=== PATIENT | male | born 1960 | race Caucasian/White ===

== ENCOUNTER → 2017-11-23 11:03 | Outpatient (CLI) | payer BC, SELFPAY ==
--- NOTE | 2017-11-23 11:10 | XR_ITS ---
XR chest 2V HISTORY: ITS.REASON: MILD PERSISTENT ASTHMA ORDERING PHYSICIAN: Jonathan Bravo MD PATIENT AGE: 57 years COMPARISON: None available FINDINGS: The cardiomediastinal silhouette and pulmonary vascularity are within normal limits. The lungs are clear without infiltrates, suspicious nodules, or pleural effusions. Calcified granulomas noted over the anterior heart on the lateral view probably in the right middle lobe No acute bony abnormalities. IMPRESSION: No acute finding
== END ==
PROVIDERS: PCP Internal Medicine Adolescent Medicine; Visit Provider Internal Medicine Adolescent Medicine
DX: J45.31 Mild persistent asthma with (acute) exacerbation (principal); R05 Cough
CPT/HCPCS: 71046

== ENCOUNTER → 2018-09-28 09:01 | Outpatient (CLI) | payer BC, SELFPAY ==
[2018-09-28 10:01] LABS: Basophils % 0.5 % (0.1-2.0); Eosinophils # 0.3 K/mm3 (0.0-0.4); Eosinophils % 5.2 % (0.1-12.0); Hematocrit 44.5 % (42.0-52.0); Hemoglobin 14.5 g/dL (14.1-18.0); Lymphocytes # 2.3 K/mm3 (0.7-4.5); Lymphocytes % 37.3 % (10-50); Mean Corpuscular HGB Conc 32.6 g/dL (31.8-35.4); Mean Corpuscular Hemoglobin 29.8 pg (27.0-31.2); Mean Corpuscular Volume 91.3 fl (80-94); Mean Platelet Volume 7.2 fl (7.4-10.4); Monocytes # 0.4 K/mm3 (0.1-1.0); Monocytes % 6.1 % (1.7-9.3); Neutrophils # 3.1 K/mm3 (1.8-7.8); Platelet Count 259 K/mm3 (142-424); Red Blood Count 4.87 M/mm3 (4.60-6.20); Red Cell Distribution Width 14.3 % (11.5-17.5); White Blood Count 6.1 K/mm3 (4.8-10.8)
[2018-09-28 12:38] LABS: Alanine Aminotransferase 44 U/L (12-78); Albumin Level 3.8 gm/dL (3.4-5.0); Albumin/Globulin Ratio 1.2 (1.1-1.8); Alkaline Phosphatase 58 U/L (46-116); Anion Gap 13.8 mEq/L (5-15); Aspartate Amino Transferase 23 U/L (15-37); Bilirubin,Total 1.1 mg/dL (0.2-1.0); Blood Urea Nitrogen 22 mg/dL (7-18); Calcium 9.2 mg/dL (8.5-10.1); Carbon Dioxide 28 mmol/L (21.0-32.0); Chloride 104 mmol/L (98-107); Cholesterol 163 mg/dL (140-200); Creatinine,Serum 0.89 mg/dL (0.70-1.30); Estimated Glomerular Filt Rate 88 ml/min (>60); GFR (African American) 107 ML/MIN (>60); Globulin 3.1 gm/dl (1.3-3.2); Glucose 104 mg/dL (74-106); HDL Cholesterol 55 mg/dL (27-67); LDL Cholesterol 92 mg/dL (0-130); Potassium 4.8 mmoL/L (3.5-5.1); Sodium 141 mmol/L (136-145); Total Protein,Serum 6.9 gm/dL (6.4-8.2); Triglycerides 78 mg/dL (30-200); VLDL Cholesterol 16 mg/dL (0-40)
== END ==
PROVIDERS: PCP Internal Medicine Adolescent Medicine; Visit Provider Internal Medicine Adolescent Medicine
DX: E78.5 Hyperlipidemia, unspecified (principal); J45.31 Mild persistent asthma with (acute) exacerbation
CPT/HCPCS: 36415; 80053; 80061; 85025

== ENCOUNTER → 2020-03-18 08:03 | Outpatient (CLI) | payer BC, SELFPAY ==
[2020-03-18 08:19] LABS: Basophils % 0.7 % (0.1-2.0); Eosinophils # 0.3 K/mm3 (0.0-0.4); Eosinophils % 6.3 % (0.1-12.0); Hematocrit 42.3 % (42.0-52.0); Hemoglobin 14.5 g/dL (14.1-18.0); Lymphocytes # 1.8 K/mm3 (0.7-4.5); Lymphocytes % 35.1 % (10-50); Mean Corpuscular HGB Conc 34.2 g/dL (31.8-35.4); Mean Corpuscular Volume 90.6 fl (80-94); Mean Platelet Volume 8.4 fl (7.4-10.4); Monocytes # 0.3 K/mm3 (0.1-1.0); Monocytes % 5.5 % (1.7-9.3); Neutrophils # 2.6 K/mm3 (1.8-7.8); Neutrophils % 52.4 % (37.0-80.0); Platelet Count 209 K/mm3 (142-424); Red Blood Count 4.67 M/mm3 (4.60-6.20); Red Cell Distribution Width 14.5 % (11.5-17.5)
[2020-03-18 09:42] LABS: Alanine Aminotransferase 40 U/L (12-78); Albumin Level 4.2 g/dl (3.5-5.0); Albumin/Globulin Ratio 1.8 (1.1-1.8); Alkaline Phosphatase 68 U/L (38-126); Anion Gap 10.7 mEq/L (5-15); Aspartate Amino Transferase 51 U/L (17-59); Bilirubin,Total 1.1 mg/dl (0.2-1.3); Blood Urea Nitrogen 19 mg/dl (9-20); Calcium 9.7 mg/dl (8.4-10.2); Carbon Dioxide 27 mmol/L (22.0-30.0); Chloride 102 mmol/L (98-107); Chol/HDL Ratio 2.4 (1-3.5); Cholesterol 156 mg/dl (140-200); Estimated Glomerular Filt Rate 99 ml/min (>60); GFR (African American) 120 ML/MIN (>60); Globulin 2.4 g/dL (1.3-3.2); Glucose 118 mg/dl (74-100); HDL Cholesterol 66 mg/dl (40-60); Potassium 4.7 mmoL/L (3.5-5.1); Sodium 135 mmol/L (136-145); Total Protein,Serum 6.6 g/dl (6.3-8.2); Triglycerides 93 mg/dl (30-150); VLDL Cholesterol 19 mg/dL (0-40)
[2020-03-18 09:52] LABS: Direct LDL Cholesterol 82.29 mg/dL (100-129)
[2020-03-18 13:47] LABS: Hemoglobin A1C 5.7 % (4.0-6.0)
== END ==
PROVIDERS: Visit Provider Nurse Practitioner Family
DX: Z00.00 Encounter for general adult medical examination without abnormal findings (principal); E78.5 Hyperlipidemia, unspecified; R73.9 Hyperglycemia, unspecified; E66.01 Morbid (severe) obesity due to excess calories; Z68.41 Body mass index [BMI] 40.0-44.9, adult
CPT/HCPCS: 36415; 80053; 80061; 83036; 85025

== ENCOUNTER → 2020-04-10 11:54 | Outpatient (CLI) | payer BC, SELFPAY ==
[2020-04-10 14:24] LABS: Coronavirus 19 IgG Antibody Negative (Negative); Coronavirus 19 IgM Antibody Negative (Negative)
== END ==
PROVIDERS: Visit Provider Internal Medicine Gastroenterology
DX: Z01.818 Encounter for other preprocedural examination (principal); Z12.11 Encounter for screening for malignant neoplasm of colon
CPT/HCPCS: 36415; 86328

== ENCOUNTER 2020-04-13 11:13 | Day surgery (SDC) | payer BC, SELFPAY ==
[2020-04-08 13:56] VITALS: BMI 42.8
[2020-04-13 12:32] VITALS: BP 138/73; PULSE 69; RESP 18; TEMP 36.6; O2SAT 99
[2020-04-13 13:21] VITALS: O2SAT 95
--- NOTE | 2020-04-13 13:47 | HMH.PROC ---
[facility] Procedure Note Procedure Note:: Colonoscopy Procedure Report: Colonoscopy Endoscopist: Jordan Jensen II, MD Referring physician: MINERVA Woodall Date of Procedure: April 13, 2020 Equipment: Olympus 180 variable stiffness pediatric colonoscope Sedation: MAC sedation Indication: Mr. Santana is a 60-year-old gentleman who is here for follow-up screening/surveillance colonoscopy. He did have a colonoscopy 5 years ago at which time a single polyp was removed. He reports no abdominal pain, weight loss, change in his bowel habits or rectal bleeding. He reports no family history of colon cancer. His mother had breast cancer and his father had lung cancer. Procedure: Prior to the procedure, a history and physical exam was performed, and patient's medications and allergies were reviewed. The risks, benefits and alternatives of the sedation and procedure were discussed with the patient. All questions were answered and informed consent was obtained. The patient was brought to the procedure room. Patient identification and proposed procedure were verified by the physician and the nurse. The patient was placed in a left lateral decubitus position and the scope was passed under direct vision. Throughout the procedure, the patient's blood pressure, pulse, and oxygen saturations were monitored continuously. The colonoscopy was accomplished without difficulty. The patient tolerated the procedure well. Findings: On digital rectal examination there was normal rectal tone. There were no external hemorrhoids. The prostate was 2+, moderately firm especially in right central with some prostate asymmetry but no nodules. The colonoscope was introduced through the anal canal to the rectum and advanced to the cecum. The ileocecal valve and appendiceal orifice were identified. The scope was advanced a short distance into the ileum which appeared grossly normal. The scope was then withdrawn into the colon. The cecum, ascending and transverse colon were grossly normal. There were a few scattered diverticuli in the distal descending and sigmoid colon. There were no mucosal abnormalities identified. Upon retroflexion within the rectum there were grade 1 internal hemorrhoids.The preparation was excellent throughout with Woodland Preparation Score of 9. The cecal time was 10 minutes. Impression: 1. Left-sided diverticulosis 2. Grade 1 internal hemorrhoids 3. Firm asymmetric prostate Plan: I am going to check PSA if this has not been done recently because of his irregular prostate. The patient will not require screening/surveillance colonoscopy again for 10 years by ACS guidelines. I would encourage bulk fiber supplementation on a long-term daily maintenance basis.
[2020-04-13 13:52] VITALS: BP 84/48; PULSE 67; RESP 16; TEMP 36.2; O2SAT 92
[2020-04-13 14:02] VITALS: BP 126/89; PULSE 73; RESP 16; O2SAT 99
[2020-04-13 14:12] VITALS: BP 136/89; PULSE 59; RESP 16; O2SAT 99
[2020-04-13 14:22] VITALS: BP 144/77; PULSE 59; RESP 16; TEMP 36.2; O2SAT 99
[2020-04-13 15:42] LABS: Prostate Specific Ag, Diagnost 2.99 ng/ml (0.0-4.0)
== END 2020-04-13 14:24 | disposition home or self-care (01) ==
LOC: OUTP 11:15
PROVIDERS: PCP Internal Medicine Adolescent Medicine; Visit Provider Internal Medicine Gastroenterology
PROC: 0DJD8ZZ Inspection of Lower Intestinal Tract, Via Natural or Artificial Opening Endoscopic (ICD-10-PCS; CPT 45378; principal; 2020-04-13 12:30)
DX: Z12.11 Encounter for screening for malignant neoplasm of colon (principal); K57.30 Diverticulosis of large intestine without perforation or abscess without bleeding; K64.0 First degree hemorrhoids; Z86.010 Personal history of colon polyps; Z80.3 Family history of malignant neoplasm of breast; Z80.1 Family history of malignant neoplasm of trachea, bronchus and lung; I10 Essential (primary) hypertension; E78.5 Hyperlipidemia, unspecified; J45.909 Unspecified asthma, uncomplicated; Z79.82 Long term (current) use of aspirin; Z79.899 Other long term (current) drug therapy; Z79.51 Long term (current) use of inhaled steroids
CPT/HCPCS: 45378; 36415; 84153

== ENCOUNTER 2021-03-16 14:50 | Outpatient (RCR) | payer BC, SELFPAY ==
--- NOTE | 2021-03-16 16:03 | HMH.PTOPEV ---
PT Outpatient Evaluation Rehab PT Outpatient Evaluation Start: 03/16/21 15:48 Freq: Status: Active Protocol: Document 03/16/21 15:48 WILLOW (Rec: 03/16/21 16:02 JUDYGARFIELD [id number]) Electronically Signed By Reggie Martinez, PT 03/16/21 15:48 Outpatient Therapy Subjective History Subjective History Patient is a 61 year old male presenting to outpatient PT with reports of chronic knee pain L>R starting appoximately 5 years ago. Patient has been receiving injection in both knees every 3 months for approximatley 2 years. Patient understands that he will need to have B TKA surgery. He visits his orthopedist next week. Comorbidities include hx of HTN, HL, elevated BMI and L knee arthroscopy. Chief Complaint Pain,Stiff,Clicks,Swelling Symptom Type Sharp,Shooting Symptoms Relieved By Rest/Positioning,Ice,OTC Meds, Prescription Meds Prior Functional Limitations Standing,Walking Current Functional Limitations Housework,Standing,Squatting, Recreation Activity,Walking, Stairs,Balance Symptom Description Intermittent Level of pain today (0-10) 0 Pain scale - at its best (0-10) 0 Pain scale - at its worst (0-10) 9 Hip/Knee Eval Gait Observation General Gait Pattern Observation Antalgic Gait Assistive Device Assistive Devices Straight Cane,Rolling / Wheeled Walker Palpation Tenderness bilateral Knee Palpation Finding Tenderness Knee Palpation Overall Comment B patellar tendon and medial tibial plateau 3/4 MMT left Hip Flexion Strength Grade 4 Good Hip Abduction Strength Grade 4- Good- Hip Adduction Strength Grade 4- Good- Hip Extension Strength Grade 4- Good- Hip External Rotation Strength Grade 4- Good- Hip Internal Rotation Strength Grade 4- Good- Knee Extension Strength Grade 4- Good- Knee Flexion Strength Grade 4 Good right Hip Flexion Strength Grade 4- Good- Hip Abduction Strength Grade 4- Good- Hip Adduction Strength Grade 4 Good Hip Extension Strength Grade 4- Good- Hip External Rotation Strength Grade 4- Good- Hip Internal Rotation Strength Grade 4- Good- Knee Extension Strength Grade 4 Good Knee Flexion Strength Grade 5 Normal ROM Hip ROM Reason Not Measure
== END 2021-03-16 14:55 | disposition home or self-care (01) ==
LOC: PT 14:50
PROVIDERS: PCP Internal Medicine Adolescent Medicine; Visit Provider Nurse Practitioner Family
DX: M17.0 Bilateral primary osteoarthritis of knee (principal)
CPT/HCPCS: 97010; 97014; 97163; G0283

== ENCOUNTER → 2021-03-19 10:02 | Outpatient (CLI) | payer BC, SELFPAY ==
[2021-03-19 10:45] LABS: Basophils # 0.1 K/mm3 (0-0.2); Basophils % 0.7 % (0.1-2.0); Eosinophils # 0.5 K/mm3 (0.0-0.4); Eosinophils % 6.3 % (0.1-12.0); Hematocrit 43.8 % (42.0-52.0); Hemoglobin 14.8 g/dL (14.1-18.0); Lymphocytes # 2.4 K/mm3 (0.7-4.5); Lymphocytes % 33.8 % (10-50); Mean Corpuscular HGB Conc 33.8 g/dL (31.8-35.4); Mean Corpuscular Hemoglobin 29.9 pg (27.0-31.2); Mean Corpuscular Volume 88.4 fl (80-94); Mean Platelet Volume 7.4 fl (7.4-10.4); Monocytes # 0.5 K/mm3 (0.1-1.0); Monocytes % 6.7 % (1.7-9.3); Neutrophils # 3.8 K/mm3 (1.8-7.8); Neutrophils % 52.5 % (37.0-80.0); Platelet Count 269 K/mm3 (142-424); Red Blood Count 4.95 M/mm3 (4.60-6.20); Red Cell Distribution Width 14.4 % (11.5-17.5); White Blood Count 7.2 K/mm3 (4.8-10.8)
[2021-03-19 11:05] LABS: Chloride 107 mmol/L (98-107); Potassium 4.9 mmoL/L (3.5-5.1); Sodium 143 mmol/L (136-145)
[2021-03-19 11:07] LABS: Blood Urea Nitrogen 13 mg/dl (9-20); Estimated Glomerular Filt Rate 86 ml/min (>60); GFR (African American) 104 ML/MIN (>60)
[2021-03-19 11:08] LABS: Alanine Aminotransferase 41 U/L (12-78); Albumin Level 4.5 g/dl (3.5-5.0); Albumin/Globulin Ratio 1.8 (1.1-1.8); Alkaline Phosphatase 76 U/L (38-126); Anion Gap 13.9 mEq/L (5-15); Aspartate Amino Transferase 33 U/L (17-59); Bilirubin,Total 1.2 mg/dl (0.2-1.3); Calcium 9.5 mg/dl (8.4-10.2); Carbon Dioxide 27 mmol/L (22.0-30.0); Chol/HDL Ratio 3.3 (1-3.5); Cholesterol 154 mg/dl (140-200); Globulin 2.5 g/dL (1.3-3.2); Glucose 102 mg/dl (74-100); HDL Cholesterol 46 mg/dl (40-60); Triglycerides 117 mg/dl (30-150); VLDL Cholesterol 23 mg/dL (0-40)
[2021-03-19 11:55] LABS: Prostate Specific Ag Screen 2.5 ng/ml (0.0-4.0)
[2021-03-19 12:02] LABS: Direct LDL Cholesterol 82.47 mg/dL (100-129)
[2021-03-19 13:34] LABS: Hemoglobin A1C 5.7 % (4.0-6.0)
== END ==
PROVIDERS: Visit Provider Nurse Practitioner Family
DX: E78.5 Hyperlipidemia, unspecified (principal); I10 Essential (primary) hypertension; R73.01 Impaired fasting glucose; G47.33 Obstructive sleep apnea (adult) (pediatric); Z12.5 Encounter for screening for malignant neoplasm of prostate
CPT/HCPCS: 36415; 80053; 80061; 83036; 85025; G0103

== ENCOUNTER → 2021-10-12 08:37 | Outpatient (POV) | payer BC, SELFPAY | PROVIDERS: Visit Provider Dermatology | DX: Z00.00 Encounter for general adult medical examination without abnormal findings (principal) ==

== ENCOUNTER → 2021-11-02 08:30 | Outpatient (POV) | payer BC, SELFPAY | PROVIDERS: Visit Provider Dermatology | DX: Z00.00 Encounter for general adult medical examination without abnormal findings (principal) ==

== ENCOUNTER → 2022-08-23 08:37 | Outpatient (POV) | payer BC, SELFPAY | PROVIDERS: Visit Provider Dermatology | DX: Z00.00 Encounter for general adult medical examination without abnormal findings (principal) ==

== ENCOUNTER → 2023-08-06 11:42 | Outpatient (CLI) | payer BC, SELFPAY | LOC: LAB.DROPOF 11:44 | PROVIDERS: PCP Internal Medicine Adolescent Medicine; Visit Provider Nurse Practitioner Family | DX: B96.89 Other specified bacterial agents as the cause of diseases classified elsewhere (principal); R06.02 Shortness of breath; R05.9 Cough, unspecified | CPT/HCPCS: 87070; 87205 ==

== ENCOUNTER → 2023-08-07 16:22 | Outpatient (CLI) | payer BC, SELFPAY ==
--- NOTE | 2023-08-07 16:29 | XR_ITS ---
PROCEDURE INFORMATION: Exam: XR Chest Exam date and time: 08/07/2023 4:30 PM Age: 63 years old Clinical indication: Cough and shortness of breath TECHNIQUE: Imaging protocol: Radiologic exam of the chest. Views: 2 views. COMPARISON: CR CXR2V XR chest 2V 11/23/2017 11:11 AM FINDINGS: Lungs: No evidence of acute pulmonary disease or infiltrates; lung salcido appear clear. Pleural spaces: No evidence of pleural effusion, pneumothorax, or pleural thickening in the visualized pleural spaces. Heart/Mediastinum: No evidence of mediastinal widening or cardiac silhouette enlargement; the mediastinum and heart appear within normal limits for contour and size. Vasculature: There are calcifications of the aortic arch. Bones/joints: There are degenerative changes of the thoracic spine. Other findings: The examination is limited by under penetration. IMPRESSION: No dense parenchymal consolidation, pleural effusion, or pneumothorax.
== END ==
PROVIDERS: PCP Nurse Practitioner Family; Visit Provider Nurse Practitioner Family
DX: R05.3 Chronic cough (principal); R06.02 Shortness of breath
CPT/HCPCS: 71046

== ENCOUNTER 2023-10-10 08:53 | Outpatient (POV) | payer BC, SELFPAY | END 2023-10-10 23:59 | disposition home or self-care (01) | LOC: SC 08:54 | PROVIDERS: PCP Nurse Practitioner Family; Visit Provider Dermatology | DX: Z00.00 Encounter for general adult medical examination without abnormal findings (principal) ==

== ENCOUNTER 2024-05-02 11:04 | Outpatient (CLI) | payer BC, SELFPAY | END 2024-05-02 23:59 | disposition home or self-care (01) | LOC: RT 11:05 | PROVIDERS: PCP Internal Medicine Adolescent Medicine; Visit Provider Nurse Practitioner Family | DX: I48.91 Unspecified atrial fibrillation (principal) | CPT/HCPCS: 93225; 93226 ==

== ENCOUNTER 2024-05-09 14:41 | Outpatient (CLI) | payer BC, SELFPAY ==
--- NOTE | 2024-05-09 14:58 | CA_ITS ---
APPROVED REPORT EXAM: Comprehensive 2D, Doppler, and color-flow Echocardiogram Sales Promoter: NATALIA Garvey, RVS Ht: 5 ft 11 in Wt: 343lbs BSA: 2.65 BP: 154/100 mmHg Indications: New A-fib, SOB, IRVING, HTN, Edema, HLD, SOA Echo Enhancing Agent Comments: Patient declined contrast 2D Dimensions Aortic Root 3.50 cm LVEF (Sewell's) 36.30 % Left Atrium 5.40 cm LV Volume 166.70 mL RVID Base (AP4) 4.21 cm (M/F) 2.5-4.1 LV Volume Index 62.525888 mL/m2 M: 34 - 74 LVOT 1.97 cm (M/F) 1.5-2.5 LA Volume 128.40 mL LA Volume Index 48.584628 mL/m2 (M/F) 16-34 EF AP4 41.00 % EF AP2 17.0 % EF BP 36.3 % GL Strain -8.9 % M-Mode Dimensions RVDd 3.40 cm (0.9-2.6) LVDd 6.31 cm (3.5-5.7) Ao Diam 3.64 cm (2.0-3.7) LVDs 4.88 cm (3.5-5.7) IVSd 1.18 cm (0.6-1.1) PWd 1.23 cm (0.6-1.1) EF (Teich) 42.20% EPSs 1.51 cm FS 21.20% EDV (Teich) 193.30 mL TAPSE 1.70 (<1.7) ESV (Teich) 111.70 mL LV Diastology E Decel Time 125 (160-240 msec) E/A Ratio 2.90 MED E' 7.5 (>= 7 cm/sec) MED A' 5.70 cm/s E'/MED E' Ratio 15.95 (<= 14) LAT E' 10.5 (>= 10 cm/sec) LAT A' 3.10 cm/s E/LAT E' Ratio 11.39 (<= 14) Aortic Valve AoV Peak Lopez. 117.0 (50-130 cm/s) AO Mean GR. 2.70 (<5 mmHg) AO VTI 19.9 (18-25 cm) Mitral Valve MV E Max Lopez. 120.0 (40-130 cm/s) MV A Velocity 41.0 (40-130 cm/s) E/A Ratio 2.90 MV Decel. Time 125 (160-240 ms) Tricuspid Valve TR P. Velocity 260.00 cm/s Left Ventricle The left ventricle is normal size. The left ventricular systolic function is mildly reduced. There is increased LV wall thickness. Mild global hypokinesis is present. Regional wall motion is difficult to assess due to technically difficult study. The septum is asynchronous. Diastolic function is indeterminate. LVEF is grossly estimated at 40-45%. Right Ventricle The right ventricle is mildly dilated. The right ventricular systolic function is normal. Atria The left atrium is mildly dilated. Right atrium is mildly dilated. There is no Doppler evidence of interatrial shunt. Aortic Valve The aortic valve is mildly thickened. There is no aortic valvular stenosis. Trace aortic regurgitation. Mitral Valve The mitral valve is normal in structure. No evidence of mitral valve stenosis. Trace mitral regurgitation. Tricuspid Valve Tricuspid valve is grossly normal in structure and function. Mild tricuspid regurgitation. RVSP is 25-30 mmHg. Pulmonic Valve The pulmonary valve is normal in structure. Trace pulmonic regurgitation. Great Vessels The aortic root is normal in size. IVC is normal in size and collapses >50% with inspiration. Pericardium There is no pericardial effusion. Other Information Study Quality: Fair Conclusion Technically difficult study due to poor accoustic windows. Mildly reduced LV systolic function (LVEF is grossly estimated at 40-45%). Asynchronous septum. Mild RV dilation. Mild biatrial dilation. Mild TR. Note that the study is technically difficult and the LVEF may not be accurate due to inability to visualize endocardial borders. The patient declined administration of ultrasound enhancing agent. Electronically signed by : Kacey English MD 05/11/2024 13:27:59
== END 2024-05-09 23:59 | disposition home or self-care (01) ==
LOC: RT 14:42
PROVIDERS: PCP Internal Medicine Adolescent Medicine; Visit Provider Physician Assistant
DX: R06.09 Other forms of dyspnea (principal); I48.91 Unspecified atrial fibrillation; R60.9 Edema, unspecified
CPT/HCPCS: 93306

== ENCOUNTER 2024-10-20 11:34 | Emergency (ER) | payer BC, SELFPAY ==
[2024-10-20 12:54] VITALS: BP 149/93; PULSE 68; RESP 18; TEMP 36.8; O2SAT 97; BMI 46.9
--- NOTE | 2024-10-20 12:59 | ED_ITS ---
Discharge Plan Disposition Patient Disposition: Home, Self-Care Condition: Good Prescriptions Prescriptions: New benzonatate 100 mg capsule 100 mg PO TIDP PRN (Reason: Cough) Qty: 30 0RF oseltamivir [Tamiflu] 75 mg capsule 75 mg PO BID 5 Days Qty: 10 0RF No Action metoprolol succinate 100 mg tablet extended release 24 hr 100 mg PO DAILY Qty: 30 5RF atorvastatin 40 mg tablet 40 mg PO DAILY montelukast 10 mg tablet 10 mg PO QPM albuterol sulfate [ProAir HFA] 90 mcg/actuation HFA aerosol inhaler 2 puff INHALATION Q6H PRN (Reason: breathing) omeprazole 40 mg capsule,delayed release(DR/EC) 40 mg PO DAILY Patient Comments: TAKE 1 CAPSULE BY MOUTH ONCE DAILY FOR 30 DAYS fluticasone propionate 50 mcg/actuation spray,suspension 2 spray intranasal PRN tadalafil 5 mg tablet 5 mg PO PRN Patient Comments: TAKE 1 TABLET BY MOUTH ONCE DAILY meloxicam 15 mg tablet 15 mg PO Restasis MultiDose 0.05 % drops 1 drp ophthalmic (eye) BID tamsulosin 0.4 mg capsule PO furosemide [Lasix] 40 mg tablet 40 mg PO DAILY PRN (Reason: edema) Qty: 30 2RF potassium chloride 20 mEq tablet extended release 20 meq PO DAILY PRN (Reason: replacement) Eliquis 5 mg tablet 5 mg PO BID Qty: 60 5RF Xarelto 20 mg tablet 20 mg PO DAILY Qty: 30 2RF Rx Instructions: must administer with evening meal aspirin 81 MG tablet,delayed release (DR/EC) 81 mg PO DAILY cetirizine 10 MG capsule 10 mg PO DAILY Referrals Follow up/Referrals: Jonathan Bravo MD [Primary Care Provider] - See instructions Activity Restrictions/Add. Instructions Additional Instructions/Restrictions: Drink plenty of fluids. Take tylenol for pain or fever. Take the medications as directed. Follow up with your regular doctor. GO TO THE ER FOR ANY WORSENING SYMPTOMS Clinical Impressions Clinical Impression: Influenza A Instructions Patient Instructions: DI for Influenza -- Adult, Oseltamivir Print Language Print Language: Greenlandic Discharge ED Provider: Cyrus Freeman [facility] [place] General Stated complaint: SOA fever 101 mi Mode of Arrival: Ambulatory Source of Information: Patient Time Seen by Provider: 10/20/24 12:52 Description of Symptoms (Recalled from Triage Doc. by RN): FEVER, COUGH, MI, BA, SOA HEENT Symptoms (Recalled from RN notes): Yes Resp Symptoms (Recalled from RN notes): Yes Skin Symptoms (Recalled from RN notes): No MS Symptoms (Recalled from RN notes): No Functional Status (Recalled from RN notes): WNL Related Data Home Medications ?Medication ?Instructions ?Recorded ?Confirmed albuterol sulfate 90 mcg/actuation 2 puff inhalation Q6H PRN breathing 05/02/18 06/18/24 aerosol inhaler (ProAir HFA) atorvastatin 40 mg tablet 40 mg PO DAILY Cholesterol 05/02/18 06/18/24 montelukast 10 mg tablet 10 mg PO QPM Breathing problems 05/02/18 06/18/24 aspirin 81 mg tablet,delayed 81 mg PO DAILY heart health 04/08/20 06/18/24 release cetirizine 10 mg capsule 10 mg PO DAILY allergies 04/08/20 06/18/24 omeprazole 40 mg capsule,delayed 40 mg PO DAILY 04/20/20 06/18/24 release cyclosporine 0.05 % eye drops 1 drp ophthalmic (eye) BID 03/16/23 06/18/24 (Restasis MultiDose) fluticasone propionate 50 2 spray intranasal PRN 03/16/23 06/18/24 mcg/actuation nasal spray,suspension meloxicam 15 mg tablet 15 mg PO 03/16/23 06/18/24 tadalafil 5 mg tablet 5 mg PO PRN 03/16/23 06/18/24 tamsulosin 0.4 mg capsule mg PO 03/18/24 06/18/24 potassium chloride 20 mEq 20 meq PO DAILY PRN replacement 05/09/24 06/18/24 tablet,extended release Previous Rx's ?Medication ?Instructions ?Recorded furosemide 40 mg tablet (Lasix) 40 mg PO DAILY PRN edema #30 tabs 05/07/24 metoprolol succinate 100 mg 100 mg PO DAILY #30 tabs 05/21/24 tablet,extended release 24 hr apixaban 5 mg tablet (Eliquis) 5 mg PO BID #60 tabs 06/18/24 rivaroxaban 20 mg tablet (Xarelto) 20 mg PO DAILY #30 tabs 06/18/24 benzonatate 100 mg capsule 100 mg PO TIDP PRN Cough #30 caps 10/20/24 oseltamivir 75 mg capsule (Tamiflu) 75 mg PO BID 5 days #10 caps 10/20/24 Allergies Allergy/AdvReac Type Severity Reaction Status Date / Time No Known Allergies Allergy Verified 06/18/24 09:31 Worker's Comp Is this a Worker's Comp case?: No [facility] Disclaimer: The information contained in this section may have been updated after the patient was seen, as this information can be updated by other users. Medical History Arthralgia of both knees Seasonal allergies Asthma Hypertension Hyperlipidemia GERD (gastroesophageal reflux disease) IRVING (obstructive sleep apnea) Surgical History Hx of left knee surgery Social History Smoking Status: Never smoker alcohol intake: current alcohol intake frequency: a few times a week substance use type: denies use current occupational status: employed Travel in the last 8 weeks: None household members: spouse housing: house current occupation: [employer] caffeine: Yes Have you lived/traveled outside [place] in past 30 days?: No Contact w/someone who lives/traveled outside US past 30 days?: No Exposure to someone with infectious disease in past 14 days?: No Do you have a fever (greater than 100.4 F or 38 C)?: Yes Have you tested positive for COVID-19: No Exposed to someone with COVID-19 in past 14 days?: No Do you have a sore throat?: No Do you have a cough?: Yes Do you have any weakness?: No Do you have any diarrhea?: No Are you experiencing any unusual bleeding?: No Do you have any muscle aches/pain?: No Do you have any abdominal pain?: No Are you experiencing loss of taste or smell?: No ROS Obtained: Yes All systems reviewed & no additional complaints except as documented Constitutional Constitutional: Reports chills and Reports fever(s) Eyes Eyes: Denies eye discharge ENT Ears, Nose, Mouth, and Throat: Reports as per HPI Cardiovascular Cardiovascular: Denies chest pain Respiratory Respiratory: Denies chest congestion and Reports cough Gastrointestinal Gastrointestingal: Reports nausea; Denies abdominal pain, constipation, cramping, diarrhea or vomiting Musculoskeletal Musculoskeletal: Denies arthralgias Integumentary/Breasts Skin/Breast: Denies rash Neurologic Neurologic: Denies paresthesias Physical Exam General General appearance: alert and in no apparent distress Head Head exam: atraumatic, normocephalic and normal inspection Eye Eye exam: Present normal appearance, PERRL and EOMI ENT ENT exam: Present normal exam, normal oropharynx, mucous membranes moist, TM's normal bilaterally and normal external ear exam Neck Neck exam: Present normal inspection, full ROM and trachea midline; Absent meningismus or lymphadenopathy Chest Chest inspection: Present normal inspection and symmetric chest wall rise; Absent tenderness Respiratory Respiratory exam: Present normal lung sounds bilaterally; Absent respiratory distress Cardiovascular Cardiovascular exam: Present regular rate and normal rhythm; Absent JVD Abdominal Exam Abdominal exam: Present soft and normal bowel sounds; Absent distention, tenderness or guarding Extremities Exam Extremities exam: Present normal inspection, full ROM and normal capillary refill; Absent calf tenderness Back Exam Back exam: Present normal inspection; Absent tenderness Neurological Exam Neurological exam: Present alert and oriented X3 Psychiatric Psychiatric exam: Present normal affect and normal mood Skin Skin exam: Present warm, dry, intact and normal color Lymphatic Lymphatic Findings: no adenopathy Medical Decision Making Medical Records Medical records reviewed: No I reviewed the patient's medical records. Screening: Per USPSTF and CDC recommendations, given the prevalence of disease in our region, it is our hospital?s policy to screen for HIV and viral Hepatitis for all patients aged 18 and over and those with ongoing risk factors. Tony Inquiry Pt receiving controlled substance: No Vital Signs: 10/20/24 12:54 Temperature 98.3 F Temperature Source Oral Pulse Rate [Left Radial] 68 Respiratory Rate 18 Blood Pressure [Left Arm] 149/93 H Blood Pressure Mean [Left Arm] 111 02 Sat by Pulse Oximetry 97 Lab Data Lab results reviewed: Yes I reviewed the patient's lab results.
[2024-10-20 13:05] LABS: UTC Influenza A Antigen Negative (Negative)
[2024-10-20 13:06] LABS: UTC Influenza B Antigen Negative (Negative)
[2024-10-20 13:35] LABS: Coronavirus 19, PCR Not Detected (NotDetected); Human Rhinovirus Not Detected (NotDetected); Influenza B, PCR Not Detected (NotDetected); Respiratory Syncytial Virus Not Detected (NotDetected)
[2024-10-20 13:47] VITALS: BP 149/93; PULSE 68; RESP 18; TEMP 36.8
[2024-10-20 16:22] LABS: Influenza A, PCR Detected (NotDetected)
== END 2024-10-20 13:48 | disposition home or self-care (01) ==
PROVIDERS: Emergency Provider Nurse Practitioner Family; PCP Internal Medicine Adolescent Medicine
DX: J09.X2 Influenza due to identified novel influenza A virus with other respiratory manifestations (principal)
CPT/HCPCS: 87631; 87804; 99212; G0381